=== PATIENT | female | born 1935 | race Caucasian/White ===

== ENCOUNTER 2017-07-30 11:16 | Emergency (ER) | payer MEDICARE, OTHER ==
--- NOTE | ~2017-07-30 | ER ---
PATIENT'S NAME: ALIVIA STEELE [facility] AGE: 82 Y [address] ROOM: [place] [address] LOCATION: ED ADMIT DATE: 07/30/2017 ER/Outpatient Report DISCHARGE DATE: 07/30/2017 FAMILY PHYSICIAN: Glynn Muñoz MD ATTENDING PHYSICIAN: Alden Mcgee CHIEF COMPLAINT: Left hand pain. HISTORY OF PRESENT ILLNESS: Ms Steele presents for evaluation of pain of her left hand. She had carpal tunnel release by Dr. Avendaño, orthopedic hand surgeon, on Monday. She states her pain has not been controlled since. She states that it hurts too bad to even ice her hand. She denies fevers, chills, nausea, or vomiting. She has been taking her hydrocodone every 4 hours and states that it helps for 2-3 hours, but then the pain is too bad and she cannot even wait for her next dose. She denies any other symptoms at this time, other than some tingling in her hand particularly on the little finger. PAST MEDICAL HISTORY: Documented on the record and reviewed by me. SOCIAL HISTORY: Documented on the record and reviewed by me. MEDICATIONS: Documented on the record and reviewed by me. ALLERGIES: DOCUMENTED ON THE RECORD AND REVIEWED BY ME. REVIEW OF SYSTEMS: All systems reviewed and negative except as noted in the HPI. PHYSICAL EXAMINATION: VITAL SIGNS: Blood pressure 152/76, pulse 100, respiratory rate is 20, temperature 98.4, SpO2 is 92% on room air. Pain is rated 10/10. GENERAL: An age appropriate female, in obvious pain, sitting upright on the exam table, holding her left wrist, palm up on a pillow, in no respiratory distress. NEUROLOGIC: Awake and alert. GCS is 15. No abnormalities on exam grossly. HEENT: Unremarkable. CHEST/HEART: Regular rate and rhythm. LUNGS: Even and unlabored respirations. ABDOMEN: Benign. PATIENT'S NAME: ALIVIA STEELE [facility] AGE: 82 Y [address] ROOM: [place] [address] LOCATION: [facility] ADMIT DATE: 07/30/2017 ER/Outpatient Report DISCHARGE DATE: 07/30/2017 FAMILY PHYSICIAN: Glynn Muñoz MD ATTENDING PHYSICIAN: Alden Mcgee BACK: Normal to inspection. EXTREMITIES: Warm, well formed, well perfused. Left wrist is notable for some swelling on the volar aspect. There is a lengthwise incision that appears to be healing well with no surrounding erythema or purulence. The patient endorses paresthesias in the little finger but has no true sensory deficits to light touch throughout. Brisk capillary refill in all the fingers. The patient is able to flex and extend at all joints of the hand. There is some discomfort associated with this. Dorsally it is slightly warm, slightly erythematous, poorly demarcated, markedly improved on repeat exam. LABS AND X-RAYS: None. IMPRESSION: Postoperative pain, poorly controlled. EMERGENCY DEPARTMENT COURSE: The patient was seen and evaluated at bedside. The patient was given Zofran and morphine IV 2 mg. She had marked improvement in her symptoms. She had marked improvement in her exam as well. I did discuss the case with Dr. Parr, on-call Orthopedic surgeon, and based on my description of the wound, he did not have any particular concerns. The redness and warmth dorsally did improve on re-evaluation. The patient was in fact sleeping with her hand in a pronated position. At this time, I do not think the patient is infected. I am recommending close followup with her hand surgeon, and return to ER immediately if worse. All questions were answered. The patient was discharged with a prescription for morphine 7.5 mg p.o. q.4-6 hours as needed and Zofran. MD CECILIA GILLESPIE/mckayla /[id number] d: 07/30/17 184 t: 07/31/17 0750, OUTPATIENT REPORT
== END 2017-07-30 13:39 | disposition disaster alternative care site (69) ==
LOC: GMED 11:16
DX: G89.18 Other acute postprocedural pain (principal); M25.532 Pain in left wrist; M79.642 Pain in left hand; I10 Essential (primary) hypertension; E11.9 Type 2 diabetes mellitus without complications; M19.90 Unspecified osteoarthritis, unspecified site; Z79.891 Long term (current) use of opiate analgesic; Z79.84 Long term (current) use of oral hypoglycemic drugs; Z88.6 Allergy status to analgesic agent; Z88.5 Allergy status to narcotic agent; Z88.0 Allergy status to penicillin; Z90.710 Acquired absence of both cervix and uterus; Z96.653 Presence of artificial knee joint, bilateral; Z98.890 Other specified postprocedural states
CPT/HCPCS: J2270; J2405